=== PATIENT | male | born 1960 | race Caucasian/White ===

== ENCOUNTER → 2016-08-19 | Outpatient (CLI) | payer OTHER ==
[2016-08-25 03:15] LABS: ANTI-CENTROMERE AB <1.0 NEG AI (<1.0 NEG); ANTI-SS-A <1.0 NEG AI (<1.0 NEG); ANTI-SS-B <1.0 NEG AI (<1.0 NEG); DNA ds CRITHIDIA NEGATIVE (NEGATIVE); MICROSOMAL AB 2 IU/ML (<9); Sm Antibody <1.0 NEG AI (<1.0 NEG)
== END | disposition home or self-care (01) ==
LOC: C.LAB 15:24
PROVIDERS: ATTEND Family Medicine
DX: H04.123 Dry eye syndrome of bilateral lacrimal glands (principal)

== ENCOUNTER → 2016-11-06 | Outpatient (CLI) | payer OTHER ==
[2016-11-06 08:09] LABS: BASO % 0.5 %; BASO ABS # 0.03 K/uL (0-0.2); COMPLETE YES; EOS % 3.6 %; HEMATOCRIT 44.3 % (42-52); IG% 0.3 %; LYMPH % 23.4 %; LYMPH ABS # 1.54 K/uL (1.2-3.4); MEAN CELL VOLUME 88.6 fL (80-100); MEAN CORPUSCULAR HEMOGLOBIN 31.6 pg (25-34); MEAN CORPUSCULAR HGB CONC 35.7 g/dl (32-36); MEAN PLATELET VOLUME 12.4 fL (7.4-10.4); MONO % 8.8 %; NEUT % 63.4 %; PLATELET COUNT 158 K/uL (130-400); WHITE BLOOD COUNT 6.58 K/uL (4.8-10.8)
[2016-11-06 08:37] LABS: ALT/SGPT 43 U/L (12-78); BLOOD UREA NITROGEN 16 mg/dl (7-18); BUN/CREATININE RATIO 11.4 (10-20); CARBON DIOXIDE 25 mmol/L (21-32); CHLORIDE 111 mmol/L (98-107); CHOLESTEROL 181 mg/dl (0-200); GLUCOSE 95 mg/dl (70-99); POTASSIUM 4.1 mmol/L (3.5-5.1); SODIUM 142 mmol/L (136-145); TRIGLYCERIDES 208 mg/dl (0-150); VERY LOW DENSITY LIPOPROT CALC 42 mg/dl
[2016-11-06 08:46] LABS: ALB/GLOB RATIO 1.2 (0.9-2); ALKALINE PHOSPHATASE 84 U/L (45-117); AST/SGOT 26 U/L (15-37); CHOLESTEROL/HDL RATIO 5.3; HDL CHOLESTEROL 34 mg/dl; LDL CHOLESTEROL CALCULATED 105 mg/dl; RHEUMATOID FACTOR < 10.0 U/mL (0-15)
[2016-11-06 13:36] LABS: CYCLIC CITRULLINATED PEPT IGG < 0.40 U/mL (0-4.99)
== END | disposition home or self-care (01) ==
LOC: C.LAB 07:24
PROVIDERS: ATTEND Internal Medicine
DX: Z11.59 Encounter for screening for other viral diseases (principal); Z00.00 Encounter for general adult medical examination without abnormal findings; E55.9 Vitamin D deficiency, unspecified; N40.0 Benign prostatic hyperplasia without lower urinary tract symptoms; M79.1 Myalgia; E78.5 Hyperlipidemia, unspecified; E78.1 Pure hyperglyceridemia; M25.50 Pain in unspecified joint

== ENCOUNTER → 2016-11-19 | Outpatient (CLI) | payer OTHER ==
--- NOTE | 2016-11-19 16:41 | DIAGNOSTIC IMAGING REPORT ---
LUMBAR SPINE W/O CONTRAST CLINICAL HISTORY: 56 years-old Male with M54.5 Chronic lower back pain. COMPARISON: MRI of the pelvis 06/29/2013 TECHNIQUE: Multiplanar, multi sequence MRI of the lumbar spine was performed without intravenous contrast. FINDINGS: The lumbar alignment is normal. The vertebral body heights are normal. There is no T1 fracture line or marrow replacement process. The conus terminates at L1. The visualized spinal cord and cauda equina are normal. There is no paraspinal edema, mass, or prevertebral fluid collection. The intra-abdominal structures are grossly unremarkable. There is intervertebral disc space narrowing seen most prominently at the L1-L2 and L2-L3 levels with degenerative changes as below T12-L1: No central canal or neural foraminal stenosis. L1-L2: Mild intervertebral disc space narrowing and disc desiccation is noted in conjunction with small circumferential annular disc bulge and annular tear. Probable disc extrusion is seen extending 1.6 cm superiorly to the inferior endplate of L1 and extending 3 mm in AP dimension, not imaged on the axial series. This does cause significant central canal or foraminal narrowing. L2-L3: Moderate intervertebral disc space narrowing with loss of disc signal is present in conjunction with circumferential annular disc bulge and small annular fissure. There is a superimposed right paracentral/foraminal broad-based disc protrusion which causes moderate lateral recess and right foraminal narrowing. There is also mild central canal stenosis. Left foramen is not significantly narrowed. Additionally, there is mild facet arthropathy with trace facet effusions. L3-L4: Mild intervertebral disc space narrowing with broad-based posterior disc bulge, mild facet arthropathy and ligament of flavum redundancy. No central canal or foraminal narrowing. L4-L5: Mild facet arthropathy with trace facet effusions and ligamentum flavum redundancy. Small circumferential annular disc bulge effaces the ventral thecal sac without significant central canal narrowing. There is however resultant moderate left and mild right foraminal stenosis. L5-S1: Moderate facet arthrosis and ligamentum flavum redundancy causes mild to moderate right foraminal narrowing. Central canal and left foramen are patent. IMPRESSION: 1. Moderate intervertebral disc space narrowing at L2-L3 is present in conjunction with circumferential annular disc bulge and small annular fissure with superimposed right paracentral/foraminal broad-based disc protrusion causing moderate right lateral recess and right foraminal narrowing. 2. Annular fissure with disc extrusion at L1-L2 is not imaged on the axial series. No associated significant central canal or foraminal narrowing is seen at this level. 3. 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 The above report was generated using voice recognition software. It may contain grammatical, syntax or spelling errors. Electronically signed by: Salas Garcia M.D. 11/19/2016 4:40 PM Dictated Date/Time: 11/19/2016 4:32 PM
== END | disposition home or self-care (01) ==
LOC: C.MRIBC 15:45
PROVIDERS: ATTEND Internal Medicine
DX: M54.5 Low back pain (principal); M51.36 Other intervertebral disc degeneration, lumbar region; M51.26 Other intervertebral disc displacement, lumbar region; M47.816 Spondylosis without myelopathy or radiculopathy, lumbar region; M48.06 Spinal stenosis, lumbar region

== ENCOUNTER → 2017-06-16 | Outpatient (CLI) | payer OTHER ==
[~2017-06-16] VITALS: Ht 182.9 cm; Wt 100.7 kg
[2017-06-16 16:24] VITALS: BP 143/88; PULSE 59; Ht 182.9 cm; Wt 100.7 kg
== END | disposition home or self-care (01) ==
LOC: C.NEUR 12:18
PROVIDERS: ATTEND Internal Medicine Pulmonary Disease
DX: G47.33 Obstructive sleep apnea (adult) (pediatric) (principal)